=== PATIENT | male | born 1960 | race African-American/Black ===

== ENCOUNTER 2018-01-26 06:46 | Day surgery (SDC) | payer OTHER ==
[2018-01-26 08:08] LABS: ADD MAN DIFF? NO
[2018-01-26 08:11] LABS: WHITE BLOOD COUNT 5.5 10^3/ul (4.8-10.8)
[2018-01-26 08:11] LABS: BASOPHIL # 0.1 10^3/ul (0.0-0.1); BASOPHILS % 1.1 % (0.0-2.0); EOSINOPHILS # 0.2 10^3/ul (0.0-0.5); EOSINOPHILS % 4.2 % (0.0-7.0); HEMATOCRIT 41.9 % (42.0-52.0); HEMOGLOBIN 13.4 g/dl (14.0-18.0); LYMPHOCYTES # 2.1 10^3/ul (0.8-2.9); MEAN CORPUSCULAR HEMOGLOBIN 29.8 pg (29.0-33.0); MEAN CORPUSCULAR VOLUME 93.1 fl (82.0-101.0); MEAN PLATELET VOLUME 8.2 fl (7.4-10.4); MONOCYTE # 0.4 10^3/ul (0.3-0.9); MONOCYTES % 6.6 % (0.0-11.0); NEUTROPHIL # 2.7 10^3/ul (1.6-7.5); NEUTROPHILS % 48.9 % (39.0-77.0); PLATELET COUNT 614 10^3/UL (140-415); RED CELL DISTRIBUTION WIDTH 12.2 % (11.5-14.5)
[2018-01-26 08:28] LABS: INR 0.92; PROTIME 12.4 Sec (11.9-14.9)
[2018-01-26 08:55] LABS: ANION GAP 15 (8-16); BLOOD UREA NITROGEN 26 mg/dl (7-20); CALCIUM 9.2 mg/dl (8.4-10.2); CARBON DIOXIDE 27 mmol/L (21-31); CHLORIDE 107 mmol/L (97-110); CHOL/HDL RATIO 4.7 RATIO; CHOLESTEROL 148 mg/dl (100-200); CREATININE 1.24 mg/dl (0.61-1.24); GLUCOSE 100 mg/dl (70-220); HDL CHOLESTEROL 31 mg/dl (30-78); LDL CHOLESTEROL,CALCULATED 89 mg/dl; POTASSIUM 4.4 mmol/L (3.5-5.1); SODIUM 145 mmol/L (135-144); TRIGLYCERIDES 139 mg/dl (0-149)
[2018-01-26] MEDS ORDERED: SOD CHLORIDE 0.45% 1,000 ML IV (09:00)
[2018-01-26] MEDS ORDERED: DIPHENHYDRAMINE 50 MG CAP PO (09:00)
[2018-01-26] MEDS ORDERED: FAMOTIDINE 20 MG TAB PO (09:00)
[2018-01-26] MEDS ORDERED: DIAZEPAM 5 MG TAB PO (09:00)
[2018-01-26] MEDS ORDERED: NITROGLYCERIN (IC) 100 MCG/ML INJ (09:06)
[2018-01-26] MEDS ORDERED: MIDAZOLAM 1 MG/ML 2 ML INJ (09:06)
[2018-01-26] MEDS ORDERED: HEPARIN 1000 UNITS/ML 10 ML INJ (09:06)
[2018-01-26] MEDS ORDERED: LIDOCAINE 1% (MDV) 20 ML INJ (09:06)
[2018-01-26] MEDS ORDERED: VERAPAMIL 5 MG INJ (09:06)
[2018-01-26] MEDS ORDERED: FENTAnyl 50 MCG/ML VIAL (09:06)
[2018-01-26] MEDS ORDERED: IODIXANOL LOCM 100 ML BTL (10:33)
[2018-01-26] MEDS ORDERED: ONDANSETRON 4 MG INJ IV (11:00)
[2018-01-26] MEDS ORDERED: ACETAMINOPHEN 325 MG TAB PO (11:00)
[2018-01-26] MEDS ORDERED: AL HYDROX/MG HYDROX/SIMETH 30 ML CUP PO (11:00)
[2018-01-26] MEDS ORDERED: morphine 2 MG INJ IV (11:00)
[2018-01-26] MEDS: SOD CHLORIDE 0.9% 1,000 ML IV (11:34)
== END 2018-01-26 15:50 | disposition home or self-care (01) ==
LOC: CCL 06:46 → SDS 06:46 → CCL 15:50
DX: I25.10 Atherosclerotic heart disease of native coronary artery without angina pectoris (principal); R94.39 Abnormal result of other cardiovascular function study; I10 Essential (primary) hypertension; E78.5 Hyperlipidemia, unspecified
CPT/HCPCS: 71045; 80048; 80061; 85025; 85610; 85730; 93005; 93458